=== PATIENT | male | born 1960 | race Caucasian/White ===

== ENCOUNTER 2017-09-02 14:20 | Emergency (ER) | payer SELFPAY ==
[~2017-09-02] VITALS: Ht 177.8 cm; Wt 80.0 kg
[2017-09-02 15:37] LABS: BASOPHILS % 0.3 % (0.0-2.0); EOSINOPHILS % 3.7 % (0.0-5.0); HEMATOCRIT. 46.4 % (42.0-52.0); HEMOGLOBIN. 15.9 g/dL (14.0-18.0); LYMPHOCYTES % 20.7 % (20.0-50.0); MEAN CORPUSCULAR HEMOGLOBIN 31.3 pg (28.0-32.0); MEAN CORPUSCULAR VOLUME 91.1 fL (80.0-94.0); MEAN PLATELET VOLUME 7.8 fl (7.4-10.4); MONOCYTES % 10.6 % (2.0-8.0); NEUTROPHILS % 64.7 % (40.0-76.0); PLATELET 238 x1000/uL (130-400); RED CELL DISTRIBUTION WIDTH 14.4 % (11.6-14.6)
[2017-09-02 15:43] LABS: INR 1.1
[2017-09-02 15:47] LABS: CARBON DIOXIDE 31 mEq/L (21-32); CHLORIDE 105 mEq/L (98-107)
[2017-09-02 15:54] LABS: TROPONIN I < 0.02 ng/mL (0.00-0.04)
[2017-09-02] MEDS ORDERED: SODIUM CHLORIDE 0.9% 1,000 ML IV NR (16:01)
[2017-09-02] MEDS ORDERED: ACETAMINOPHEN 325MG TABLET PO ONE (16:15)
[2017-09-02] MEDS ORDERED: ASPIRIN 325MG TABLET PO ONE (16:45)
[2017-09-02] MEDS ORDERED: ACETAMINOPHEN 325MG TABLET PO PRN (17:45)
[2017-09-02] MEDS ORDERED: ONDANSETRON HCL 4MG/2ML VIAL IV PRN (17:45)
[2017-09-02] MEDS ORDERED: MORPHINE SULFATE 2 MG/ML CPJ (NOT FOR IM USE) IV PRN (17:45)
[2017-09-02] MEDS ORDERED: MECLIZINE 25MG TABLET PO PRN (17:45)
[2017-09-02] MEDS ORDERED: HYDROCODONE/ACETAMINOPHEN 5/325MG TABLET PO PRN (17:45)
[2017-09-02] MEDS ORDERED: DIPHENHYDRAMINE 50MG/ML VIAL IV PRN (17:45)
[2017-09-02] MEDS ORDERED: DOCUSATE SODIUM 100MG CAPSULE PO PRN (17:45)
[2017-09-02] MEDS ORDERED: GUAIFENESIN 200MG/10ML SUGAR FREE UDC PO PRN (17:45)
[2017-09-02] MEDS ORDERED: CLONIDINE 0.1MG TABLET PO PRN (17:45)
[2017-09-02 18:30] VITALS: BP 144/96
[2017-09-03] MEDS ORDERED: ASPIRIN 81MG EC TABLET PO SCH ×2 (09:00→09:15)
[2017-09-03] MEDS ORDERED: AMLODIPINE 10MG TABLET PO SCH ×2 (09:00→09:15)
== END 2017-09-02 18:46 | disposition left against medical advice (07) ==
LOC: ER 14:36 → EDBEDREQ 17:02 → SUPCPDRO 17:41 → ER 18:46 → CANRESERV 19:51 → ENRESERV 19:51 → CANBEDREQ 09-04 00:19
DX: G45.9 Transient cerebral ischemic attack, unspecified (principal); I95.1 Orthostatic hypotension; R20.0 Anesthesia of skin; Z71.89 Other specified counseling; Z79.82 Long term (current) use of aspirin
CPT/HCPCS: 36415; 70450; 71010; 80053; 83735; 84484; 85025; 85610; 93005; 96360; 96361; 99285; J7030